=== PATIENT | male | born 1960 | race Caucasian/White ===

== ENCOUNTER 2023-07-29 18:17 | Emergency (ER) | payer MEDICAID, SELFPAY ==
--- NOTE | ~2023-07-29 | CT_ITS ---
EXAMINATION: CT HEAD WITHOUT CONTRAST CLINICAL INFORMATION: Head injury COMPARISON: None available. TECHNIQUE: Contiguous axial imaging was performed from the skull base to vertex without intravenous administration of contrast. This CT examination was performed using dose optimization techniques as appropriate, variously including the following: *Automated exposure control *Adjustment of mA and/or kV according to patient size (this includes techniques or standardized protocols for targeted exams where dose is matched to indication/reason for exam; i.e. extremities or head) *Use of iterative reconstruction technique DLP: 693 mGy-cm FINDINGS: There is no evidence of an extra-axial lesion. No evidence of intra-axial or extra-axial hemorrhage. Ventricles and CSF spaces are slightly prominent suggestive of mild generalized atrophy. Nonspecific periventricular white matter disease. No mass, mass effect or infarct. No skull fracture. Visualized paranasal sinuses, mastoid air cells and middle ears are clear. CT/CT head/brain wo IV con IMPRESSION: No acute intracranial pathology.
--- NOTE | ~2023-07-29 | CT_ITS ---
EXAMINATION: CT CERVICAL SPINE WITHOUT CONTRAST CLINICAL INFORMATION: Fall COMPARISON: None available. TECHNIQUE: Axial images through the cervical spine without IV contrast. Sagittal and coronal reconstructions on the technologist workstation were performed. This CT examination was performed using dose optimization techniques as appropriate, variously including the following: *Automated exposure control *Adjustment of mA and/or kV according to patient size (this includes techniques or standardized protocols for targeted exams where dose is matched to indication/reason for exam; i.e. extremities or head) *Use of iterative reconstruction technique DLP: 405 mGy-cm FINDINGS: Bone alignment is normal. No fracture or dislocation. Mild degenerative spondylosis from C3-C4 to C5-C6. Degenerative changes of the C1 dens articulation. Normal disc spaces. Posterior soft tissue ossifications likely from old trauma. Normal prevertebral soft tissues. Visualized lung apices are clear. CT/CT cervical spine wo IV con IMPRESSION: Unremarkable examination. Fleischner guidelines were followed.
--- NOTE | ~2023-07-29 | CT_ITS ---
EXAMINATION: CT LUMBAR SPINE WITHOUT CONTRAST CLINICAL INFORMATION: Fall. Back pain. COMPARISON: None available. TECHNIQUE: Noncontrast computed tomography of the lumbar spine was performed. This CT examination was performed using dose optimization techniques as appropriate, variously including the following: *Automated exposure control *Adjustment of mA and/or kV according to patient size (this includes techniques or standardized protocols for targeted exams where dose is matched to indication/reason for exam; i.e. extremities or head) *Use of iterative reconstruction technique DLP; 545 mGy-cm FINDINGS: There is a grade 1 anterolisthesis (3 mm) of L5 in relation to S1. This is secondary to bilateral pars defects at L5. Spinal alignment is otherwise maintained. Vertebral body heights are maintained. There is severe degenerative disc disease at L5-S1 characterized by near complete obliteration of the intervertebral disc space, marked endplate sclerosis, and marked anterior and posterior osteophytosis. Remaining lumbar intervertebral disc space levels are preserved. The paraspinal soft tissue is normal in appearance. Evaluation of the individual disc space levels is as follows: L1-L2: There is no disc herniation. There is no spinal canal or foraminal stenosis. L2-L3: There is no disc herniation. There is no spinal canal or foraminal stenosis. L3-L4: There is a shallow circumferential disc herniation which flattens the ventral thecal sac. The spinal canal remains patent. There is mild narrowing of the right greater than left neural foramina. L4-L5: There is a shallow circumferential disc herniation which flattens the ventral thecal sac. There is ligamentous hypertrophy and facet arthropathy. Findings result in minimal narrowing of the spinal canal. There is mild narrowing of the neural foramina. L5-S1: There is uncovering of the posterior aspect of the intervertebral disc secondary to anterolisthesis related to pars defects at L5 bilaterally. There is significant facet arthropathy. No spinal canal stenosis. The neural foramina are moderately narrowed bilaterally, right greater than left. The visualized inferior aspect of the spleen demonstrates punctate calcifications. The visualized portions of the kidneys are normal in appearance. The adrenal glands are normal in appearance. There is no retroperitoneal lymphadenopathy. There are vascular calcifications throughout the aorta. CT/CT lumbar spine wo IV con IMPRESSION: - No acute osseous lumbar spine abnormality. - There is a grade 1 anterolisthesis (3 mm) of L5 in relation to S1. This is secondary to bilateral pars defects at L5. - At L4-L5 there is a shallow circumferential disc herniation which flattens the ventral thecal sac. There is ligamentous hypertrophy and facet arthropathy. Findings result in minimal narrowing of the spinal canal. There is mild narrowing of the neural foramina. - At L5-S1 there is uncovering of the posterior aspect of the intervertebral disc secondary to anterolisthesis related to pars defects at L5 bilaterally. There is significant facet arthropathy. No spinal canal stenosis. The neural foramina are moderately narrowed bilaterally, right greater than left.
[2023-07-29 18:27] VITALS: BP 160/92; BP 178/87; PULSE 90; PULSE 95; RESP 18; TEMP 37.1; O2SAT 94; O2SAT 97; BMI 26.6
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
[2023-07-29 19:24] LABS: MANUAL DIFF FLAG NO
[2023-07-29 19:25] LABS: Basophils Percent Auto 0.5 % (0-2); Eosinophils Percent Auto 0.8 % (0-4); Hematocrit 38.2 % (42.0-52.0); Hemoglobin 13.5 g/dl (14.0-18.0); Imm Gran Abs Auto 0.01 X10*3/uL (0.00-0.03); Imm Gran Pct Auto 0.3 % (0.0-0.4); Lymphocytes Absolute Auto 1.3 X10*3/uL (1.2-4.9); Lymphocytes Percent Auto 34.9 % (20-40); Mean Corpuscular HGB Conc 35.3 g/dl (31.0-36.0); Mean Corpuscular Hemoglobin 32.2 pg (27.0-33.0); Mean Corpuscular Volume 91.2 fL (80.0-98.0); Mean Platelet Volume 9.7 fL (9.4-12.4); Monocytes Absolute Auto 0.5 X10*3/uL (0.1-1.2); Monocytes Percent Auto 14.3 % (2-11); Neutrophils Absolute Auto 1.8 x10*3/uL (2.0-8.3); Neutrophils Percent Auto 49.2 % (45-73); Platelet Count 143 X10*3/uL (160-400); Red Blood Count 4.19 X10*6/uL (4.60-5.80); Red Cell Distribution Width 12.7 % (11.0-16.0); White Blood Count 3.6 X10*3/uL (4.8-10.8)
[2023-07-29 19:37] LABS: Amphetamine Screen Urine Not Detected (Not Detect); Barbiturates, Urine Not Detected (Not Detect); Benzodiazepines Screen Urine Not Detected (Not Detect); Cannabinoid Screen Urine Not Detected (Not Detect); Cocaine Screen Urine Not Detected (Not Detect); Fentanyl, urine Not Detected (Not Detect); Opiate Screen Urine Not Detected (Not Detect); Phencyclidine Screen Urine Not Detected (Not Detect)
[2023-07-29 19:44] LABS: Appearance Urine Clear; Color Urine Yellow; Glucose Urine UA Negative (Negative); Leukocyte Esterase Urine Negative (Negative); Nitrite Urine Negative (Negative); PH 6.5 (5.0-9.0); Specific Gravity - Urine <= 1.005 (1.005-1.025); Urine Blood Negative (Negative); Urine Ketones Negative (Negative); Urine Protein Negative (Neg-Trace)
[2023-07-29 19:46] LABS: Alanine Aminotransferase 53 U/L (0-40); Alkaline Phosphatase 83 U/L (39-117); Anion Gap 17 (12-20); Aspartate Amino Transferase 98 U/L (5-37); Bilirubin Direct 0.3 mg/dL (0.0-0.5); Bilirubin Total 0.8 mg/dL (0.0-1.0); Blood Urea Nitrogen 9 mg/dL (9-16); Calcium 9.3 mg/dL (8.4-10.2); Carbon Dioxide 25 mmol/L (22-29); Chloride 105 mmol/L (96-108); Creatinine Clr Calc Pharmacy 98.1; Estimated Glomerular Filt Rate > 60; Ethanol 229 mg/dL; Glucose Random 117 mg/dL (60-115); Lipase 26 U/L (8-78); Potassium 3.7 mmol/L (3.3-5.1); Sodium 143 mmol/L (135-145); Total Protein 7.7 g/dL (6.5-8.0)
[2023-07-29 19:48] LABS: Bacteria Urine None Seen (None Seen); Hyaline Casts Urine 0-2 /LPF (0-2); RBC Urine 0-2 /HPF (0-2); Squamous Epithelial Cell Urine 0-2 /HPF (0-2); WBC Urine 0-5 /HPF (0-5)
== END 2023-07-29 22:15 | disposition home or self-care (01) ==
PROVIDERS: Emergency Provider Student in an Organized Health Care Education/Training Program
DX: S09.90XA Unspecified injury of head, initial encounter (principal); F10.129 Alcohol abuse with intoxication, unspecified; R51.9 Headache, unspecified; Y90.7 Blood alcohol level of 200-239 mg/100 ml; M54.2 Cervicalgia; M54.50 Low back pain, unspecified; V03.90XA Pedestrian on foot injured in collision with car, pick-up truck or van, unspecified whether traffic or nontraffic accident, initial encounter; Y93.9 Activity, unspecified; Y92.410 Unspecified street and highway as the place of occurrence of the external cause; Y99.8 Other external cause status; Z79.899 Other long term (current) drug therapy
CPT/HCPCS: 36415; 70450; 72125; 72132; 80048; 80076; 80307; 81001; 83690; 85025; 99284